=== PATIENT | male | born 1980 | race Caucasian/White ===

== ENCOUNTER 2021-12-19 18:17 | Emergency (ER) | payer MEDICAID ==
[~2021-12-19] VITALS: Ht 157.5 cm; Wt 69.9 kg
[2021-12-19 18:30] VITALS: BP 157/99
--- NOTE | 2021-12-19 22:16 | NUR ---
PT TAKEN TO ULTRASOUND
--- NOTE | 2021-12-19 22:37 | NUR ---
Dr. Reyes examining patient.
--- NOTE | 2021-12-19 22:39 | NUR ---
PT IN [facility]
[2021-12-19] MEDS ORDERED: NAPR-54 PO (22:47)
[2021-12-19 22:52] VITALS: BP 157/99
--- NOTE | 2021-12-19 22:52 | NUR ---
PT CLEARED BY [facility]IE[facility] FOR D/C
--- NOTE | 2021-12-19 23:08 | NUR ---
Called and leave message to come back to ER.
== END 2021-12-19 22:52 | disposition home or self-care (01) ==
LOC: MED 18:17
DX: S93.601A Unspecified sprain of right foot, initial encounter (principal); X58.XXXA Exposure to other specified factors, initial encounter; Y93.89 Activity, other specified; Y92.89 Other specified places as the place of occurrence of the external cause; Y99.2 Volunteer activity
CPT/HCPCS: 93971; 99284; Q0092

== ENCOUNTER 2021-12-20 07:39 | Inpatient (IN) | payer MEDICAID ==
[~2021-12-20] VITALS: Ht 157.5 cm; Wt 69.9 kg
[~2021-12-20 07:39] MED LIST: NAPR-54 PO
[2021-12-20 07:56] VITALS: BP 124/74
--- NOTE | 2021-12-20 08:04 | NUR ---
41 y/o male bib self from home, pt was seen here yesterday for same s/s. pt reports he started having right calf pain on 12/17 with tender sensation on palpation, denies extremity is red or hot to touch. pt states he recieved a call to come to the er for follow up for findings. pt was told that he had a blood clot in his leg via us findings. us states "deep venous thrombosis of the distal right popliteal vein as well as the right trifurcation and posterior tibial veins." skin is pink/warm/dry. a&o x4, nauruan speaking, with even and steady gait. lungs clear bl, heart rate even and regular. pt denies any fever, cp, sob, or cough at this time. pt states pain is 8/10 at this time. vss. humphries made aware of pt. pmh: denies nka med: tylenol
--- NOTE | 2021-12-20 10:41 | NUR ---
DR TELLES AT BEDSIDE FOR EVAL
--- NOTE | 2021-12-20 10:56 | NUR ---
BLOOD SAMPLES AND SWAB HANDED TO ÓSCAR
[2021-12-20 11:11] LABS: BASOPHILS % (AUTO) 0.5 % (0.0-2.0); EOSINOPHILS # (AUTO) 0.1 K/uL (0-0.4); EOSINOPHILS % (AUTO) 1.4 % (0.0-4.0); HEMATOCRIT 46.2 % (36-52); HEMOGLOBIN 15.4 g/dL (12.0-18.0); LYMPHOCYTES # (AUTO) 1.9 K/uL (2.0-11.5); LYMPHOCYTES % (AUTO) 33.3 % (20.5-51.1); MEAN CORPUSCULAR HEMOGLOBIN 33 pg (27-31); MEAN CORPUSCULAR HGB CONC 33 g/dL (33-37); MEAN CORPUSCULAR VOLUME 97.9 fL (80-94); MONOCYTES # (AUTO) 0.8 K/uL (0.8-1.0); NEUTROPHILS % (AUTO) 51.8 % (42.2-75.2); PLATELET COUNT (AUTO) 159 K/uL (140-450); RED BLOOD CELL COUNT(AUTO) 4.72 MIL/uL (4.20-6.10); RED CELL DISTRIBUTION WIDTH 13.3 % (11.6-13.7); WHITE BLOOD COUNT (AUTO) 5.8 K/uL (4.8-10.8)
[2021-12-20 11:28] LABS: CARBON DIOXIDE 27.3 mmol/L (21-32); POTASSIUM 4.3 mmol/L (3.5-5.1)
[2021-12-20 11:29] LABS: PROTHROMBIN TIME 10.2 secs (10.8-13.4)
[2021-12-20] MEDS ORDERED: MORPHINE SULFATE 4 MG/ML SYR IVP ONE (12:35)
--- NOTE | 2021-12-20 13:20 | NUR ---
DR ROMAN BELTRÁN AT BEDSIDE FOR MIRACLE;
--- NOTE | 2021-12-20 13:28 | NUR ---
receieved pt aaox4 , from er/ alvino nid - o2 sat wnl , iv site intact and patent , plan of care discussed and verbalizes understanding , will cont. to monitor . call light within reach .
[2021-12-20 13:30] VITALS: BP 128/80
[2021-12-20] MEDS ORDERED: SODIUM PHOS / POTASSIUM PHOS 1 PKT PDR PO PRN (13:30)
[2021-12-20] MEDS ORDERED: POTASSIUM CHLORIDE 10 MEQ TABER PO PRN (13:30)
[2021-12-20] MEDS ORDERED: ONDANSETRON 4 MG/2 ML VIAL IM/IVP PRN (13:30)
[2021-12-20] MEDS ORDERED: ACETAMINOPHEN 325 MG TAB PO PRN (13:30)
[2021-12-20] MEDS ORDERED: HYDROcodone/APAP 5/325 MG 1 TAB TAB PO PRN (13:30)
[2021-12-20] MEDS ORDERED: DOCUSATE SODIUM 100 MG GELCAP PO PRN (13:30)
[2021-12-20] MEDS ORDERED: MORPHINE SULFATE 2 MG/ML SYR IVP PRN (13:30)
[2021-12-20] MEDS ORDERED: HEPARIN PER PHARMACY MC PRN (13:30)
[2021-12-20] MEDS ORDERED: hePARIN / DEXT 5% PREMIX 250 ML IV SCH (13:30)
[2021-12-20] MEDS ORDERED: MAGNESIUM OXIDE 400 MG TAB PO PRN (13:30)
--- NOTE | 2021-12-20 13:30 | NUR ---
zofran and morphine tiv given for nausea and pain - bp 125/78 , pr 88 Addendum: 12/21/21 at 1739 by Viktoriya Mondragon RN the above nurse's note is an error entry - wrong pt - deanne
--- NOTE | 2021-12-20 13:45 | NUR ---
Patient will be admitted to care of DR JEREL OWENS. Admited to MED SURG. Will go to room 121B. Belongings list completed. Report to GABRIEL SANTOS.
[2021-12-20 14:30] LABS: MAGNESIUM 2.3 mg/dL (1.8-2.4); PHOSPHORUS 4.4 mg/dL (2.5-4.9)
[2021-12-20] MEDS: hePARIN / DEXT 5% PREMIX 250 ML IV SCH (15:15)
[2021-12-20 16:00] VITALS: BP 128/69
--- NOTE | 2021-12-20 16:00 | NUR ---
rounds , no s/sx of acute distress noted , will cont. to monitor
[2021-12-20 16:09] LABS: ALBUMIN 3.8 g/dL (3.4-5.0); BILIRUBIN,DIRECT 0.1 mg/dL (0.0-0.3); TOTAL BILIRUBIN 0.6 mg/dL (0.0-1.0)
[2021-12-20 16:19] LABS: APPEARANCE,URINE CLEAR (CLEAR); BILIRUBIN,URINE NEGATIVE (NEGATIVE); BLOOD, URINE NEGATIVE (NEGATIVE); COLOR,URINE YELLOW (YELLOW); LEUKOCYTE ESTERASE ,URINE NEGATIVE (NEGATIVE); NITRITE, URINE NEGATIVE (NEGATIVE); UGLUCOSE NEGATIVE (NEGATIVE)
[2021-12-20 16:31] LABS: BARBITURATE, URINE NEGATIVE ng/ml (NEG <=200); BENZODIAZEPINE, URINE NEGATIVE ng/mL (NEG <=200); CANNABINOID, URINE NEGATIVE ng/mL (NEG <=50); COCAINE, URINE NEGATIVE ng/mL (NEG <=300); OPIATE, URINE POSITIVE ng/mL (NEG <=2000); PHENCYCLIDINE SCREEN,URINE NEGATIVE ng/mL (NEG <=25)
[2021-12-20 20:00] VITALS: BP 165/72
--- NOTE | 2021-12-20 22:15 | NUR ---
PT COMPLAINT OF PAIN 9/10 IN RIGHT CALF. POSITIVE HARSHAL SIGN. ADMINISTERED MEDICATION PER MD ORDER. PAUSED HEPARIN DRIP, AND FLUSHED IV FOR MEDICATION ADMINISTRATION. FLUSHED AND RESTARTED HEPARIN DRIP. CALL LIGHT IN REACH. ALL SAFETY MEASURES IN PLACE
[2021-12-21] VITALS: BP 106/72
[2021-12-21 02:00] VITALS: BP 128/72
[2021-12-21 06:19] LABS: BASOPHILS % (AUTO) 0.7 % (0.0-2.0); EOSINOPHILS # (AUTO) 0.2 K/uL (0-0.4); EOSINOPHILS % (AUTO) 3.1 % (0.0-4.0); HEMATOCRIT 42.3 % (36-52); HEMOGLOBIN 14.4 g/dL (12.0-18.0); LYMPHOCYTES # (AUTO) 2.1 K/uL (2.0-11.5); LYMPHOCYTES % (AUTO) 38.5 % (20.5-51.1); MEAN CORPUSCULAR HEMOGLOBIN 33 pg (27-31); MEAN CORPUSCULAR HGB CONC 34 g/dL (33-37); MEAN CORPUSCULAR VOLUME 97.1 fL (80-94); MONOCYTES # (AUTO) 0.7 K/uL (0.8-1.0); MONOCYTES % (AUTO) 11.9 % (1.7-9.3); NEUTROPHILS # (AUTO) 2.5 K/uL (1.8-7.7); NEUTROPHILS % (AUTO) 45.8 % (42.2-75.2); PLATELET COUNT (AUTO) 166 K/uL (140-450); RED BLOOD CELL COUNT(AUTO) 4.35 MIL/uL (4.20-6.10); RED CELL DISTRIBUTION WIDTH 13.6 % (11.6-13.7); WHITE BLOOD COUNT (AUTO) 5.5 K/uL (4.8-10.8)
--- NOTE | 2021-12-21 08:00 | NUR ---
awake , no s/sx of acute distress noted , hep drip - no bleeding noted , will cont. to monitor .
[2021-12-21] MEDS ORDERED: PANTOPRAZOLE 40 MG TABEC PO SCH (09:00)
--- NOTE | 2021-12-21 12:00 | NUR ---
no complain made . on hep drip , call light within reach .
[2021-12-21] MEDS: hePARIN / DEXT 5% PREMIX 250 ML IV SCH (12:44)
--- NOTE | 2021-12-21 14:00 | NUR ---
rounds , no s/sx of acute distress noted , will cont. to monitor .
[2021-12-21] MEDS ORDERED: PANT40EC56 PO (15:22)
[2021-12-21] MEDS ORDERED: RIVA15TA1 PO (15:22)
--- NOTE | 2021-12-21 15:30 | NUR ---
discharge instructions given , verbalizes understanding , all concern and question answered . discharge packet given to pt . Addendum: 12/21/21 at 1747 by Viktoriya Mondragon RN iv access removed - needle intact , min. bleeding , procedure tolerated by pt .
--- NOTE | 2021-12-21 15:40 | NUR ---
discharged , stable , accomapanied by relative .
[2021-12-21 15:58] VITALS: BP 126/66
[2021-12-25 18:08] LABS: ANTITHROMBIN ACTIVITY 106 % (75 - 135)
== END 2021-12-21 16:47 | disposition home or self-care (01) | DRG 197 ==
LOC: MED 07:39 → MTU 13:08
PROVIDERS: ADMIT Hospitalist; ATTEND Hospitalist
DX: I82.431 Acute embolism and thrombosis of right popliteal vein (principal); Z20.822 Contact with and (suspected) exposure to COVID-19; I82.441 Acute embolism and thrombosis of right tibial vein
CPT/HCPCS: 36415; 71045; 80048; 80076; 80305; 81003; 83735; 83891; 83900; 83909; 83912; 84100; 85025; 85300; 85305; 85610; 85651; 85730; 87081; 96374; 99285; J1644; J2270; Q0092